=== PATIENT | female | born 1960 | race Caucasian/White ===

== ENCOUNTER → 2021-06-03 07:59 | Outpatient (CLI) | payer BC, SELFPAY ==
--- NOTE | ~2021-06-03 | DEXA_ITS ---
Bone Density Report Name: WIN AMBRIZ Age: 60 Sex: Female Ethnicity: White Date of : 1960 Indication: postmenopausal; screening for osteoporosis; Referring Provider: Hanh, Cristina Davis Study: Bone densitometry was performed. Exam Date: June 03, 2021 Accession number: [id number] Bone Density: Region BMD T-score Z-score Classification AP Spine (L1-L4) 0.967 -0.7 0.8 Normal Femoral Neck (Left) 0.683 -1.5 -0.1 Osteopenia Total Hip (Left) 0.886 -0.5 0.6 Normal Femoral Neck (Right) 0.710 -1.3 0.1 Osteopenia Total Hip (Right) 0.887 -0.5 0.6 Normal Total Hip Mean 0.887 -0.5 0.6 Normal World Health Organization criteria for BMD impression classify patients as: Normal (T-score at or above -1.0), Osteopenia (T-score between -1.0 and -2.5), or Osteoporosis (T-score at or below -2.5). 10-year Fracture Risk(1): Major Osteoporotic Fracture 7.8% Hip Fracture 0.7% Reported Risk Factors: [place] (), Neck BMD=0.683, BMI=34.6 (1) FRAX(R) Version 3.08. Fracture probability calculated for an untreated patient. Fracture probability may be lower if the patient has received treatment. Clinical Information Provided by Patient: Patient maximum height was 64 Menopause Age: 45 Does not regularly consume dairy products Drinks caffeinated beverages Onset of menses at age 14 Number of children 0 Impression: The patient has low bone mass, based on the Left Femoral Neck T-score. The patient has an estimated ten-year risk of hip fracture of 0.7% and an estimated ten-year risk of major fracture of 7.8%, based on the WHO FRAX algorithm. Discussion: BONE DENSITY IS LOW AT ONE OR MORE SKELETAL SITES. This patient's lowest T-score is low at one or more skeletal sites. It meets the World Health Organization's (WHO) criteria for ?low bone mass? (T-score between -1.0 and -2.5). The patient's 10-year risk of fracture as calculated by FRAX is less than the threshold where pharmacological therapy is recommended by the National Osteoporosis Foundation (NOF). However, all treatment decisions require clinical judgment and consideration of individual patient factors, including patient preferences, comorbidities, previous drug use, risk factors not captured in the FRAX model (e.g., frailty, falls, vitamin D deficiency, increased bone turnover, interval significant decline in bone density) and possible under or overestimation of fracture risk by FRAX. The patient should follow a healthful lifestyle (good nutrition with adequate calcium and vitamin D, and appropriate weight-bearing exercise). Follow-Up: Consider repeating this study in 2 to 3 years to reassess this patient's status, or sooner if there is some new clinical indication. Reported by: KELLEE on 06/03/2021 8:12:00 AM.
== END ==
PROVIDERS: PCP Internal Medicine; Visit Provider Nurse Practitioner Obstetrics & Gynecology
DX: Z12.31 Encounter for screening mammogram for malignant neoplasm of breast (principal); M85.852 Other specified disorders of bone density and structure, left thigh; M85.851 Other specified disorders of bone density and structure, right thigh
CPT/HCPCS: 77080

== ENCOUNTER 2022-03-21 14:28 | Outpatient (CLI) | payer BC, SELFPAY | END 2022-03-21 14:29 | disposition home or self-care (01) | LOC: ANHAUDASC 14:30 | PROVIDERS: PCP Internal Medicine; Visit Provider Otolaryngology | DX: H90.41 Sensorineural hearing loss, unilateral, right ear, with unrestricted hearing on the contralateral side (principal); H90.12 Conductive hearing loss, unilateral, left ear, with unrestricted hearing on the contralateral side | CPT/HCPCS: 92557; 92567 ==

== ENCOUNTER 2022-07-23 01:15 | Day surgery (SDC) | payer BC, SELFPAY ==
[2022-07-11 10:15] VITALS: BMI 34.7
--- NOTE | 2022-07-22 19:42 | PM.HPGS ---
History of Present Illness History of Present Illness Consent: Risks, benefits, and alternatives have been discussed and questions answered. Patient agrees to proceed with procedure. Chief complaint: rectal bleeding Narrative: Kathy Jimenez is a 61 year old female who is due for colon cancer screening. Review of Systems Review of Systems: All systems reviewed & are unremarkable except as noted in HPI and below PMFSH Past Medical History Medical History Palmar fascial fibromatosis [dupuytren] Surgical History Surgical History H/O neck surgery 2004 History of knee replacement Family History Family History Father Cancer Mother Cancer Diabetes mellitus Hypertension Heart disease Thyroid disorder Sibling Alcoholism Grandparent Diabetes mellitus Hypertension Grandparent Cancer Social History Social History Smoking status: Never smoker Alcohol intake: never Substance use: never Substance use type: does not use Lack of Transportation: No Lack of Food: Never True Current Housing: I Have Housing Concerned About Future Housing: No Difficulty Paying Gas/Electric Bills: No Difficulty Paying for Meds: No Currently Unemployed: No Education: Master's Degree or Higher Difficulty w/ Childcare or Family Care: No Living arrangements: alone Occupation/Education: retired Gender identity (if verbalized by the patient): Female Spiritual care concerns: No Meds Home Medications and Allergies Home Medications Medication Instructions Recorded Confirmed Type venlafaxine 37.5 mg 37.5 mg PO EVERY OTHER DAY 08/03/20 07/11/22 History capsule,extended release 24 hr fluticasone propionate 50 1 - 2 spray intranasal BID #16 mL 03/13/22 07/11/22 Rx mcg/actuation nasal spray,suspension (Flonase Allergy Relief) aspirin 81 mg capsule 81 mg PO DAILY 07/11/22 07/11/22 History cholecalciferol (vitamin D3) 100 100 mcg PO DAILY 07/11/22 07/11/22 History mcg (4,000 unit) capsule multivitamin with minerals-folic 1 tablet PO DAILY 07/11/22 07/11/22 History acid 0.4 mg tablet Allergies Allergy/AdvReac Type Severity Reaction Status Date / Time Penicillins Allergy Severe swollen Verified 07/23/22 10:26 throat Exam Const: General: alert Orientation/consciousness: patient oriented x3 Resp: Auscultation: clear to auscultation bilaterally Cardio: Rhythm: regular rhythm GI: GI Palp: Yes Soft to palpation and No Tenderness to palpation present (GI) Neuro: General: patient oriented x3 Assessment and Plan Assessment and plan (1) Colon cancer screening: Code(s): Z12.11 - Encounter for screening for malignant neoplasm of colon Status: Acute Assessment and Plan: Colonoscopy with possible biopsy or polypectomy or cautery or injection of substances.
[2022-07-23 10:27] VITALS: BP 146/72; PULSE 81; RESP 20; TEMP 35.9; O2SAT 95
[2022-07-23] MEDS: LACTATED RINGERS 1,000 ML 150 ML IV CONT (10:39)
--- NOTE | 2022-07-23 10:39 | WPDANESEPPF ---
Anes - Initial Pre Proc Eval Procedure: Operation Date: 07/23/22 11:30 Proposed Procedures p Colonoscopy - Sahil Stevenson MD Date/Time: 07/23/22 10:39 Surgeon: Sahil Stevenson MD Pre Op Diagnosis: rectal bleeding Patient Data Age: 61 Gender: F Height: 1.6 m Weight: 87.5 kg Last Vital Signs Temp 96.7 F L 07/23/22 10:27 Pulse 81 07/23/22 10:27 Resp 20 07/23/22 10:27 BP 146/72 H 07/23/22 10:27 Pulse Ox 95 07/23/22 10:27 O2 Del Method Room Air 07/23/22 10:27 Allergies Allergy/AdvReac Type Severity Reaction Status Date / Time Penicillins Allergy Severe swollen Verified 07/23/22 10:26 throat Home Medications Medication Instructions Recorded Confirmed Type venlafaxine 37.5 mg 37.5 mg PO EVERY OTHER DAY 08/03/20 07/11/22 History capsule,extended release 24 hr fluticasone propionate 50 1 - 2 spray intranasal BID #16 mL 03/13/22 07/11/22 Rx mcg/actuation nasal spray,suspension (Flonase Allergy Relief) aspirin 81 mg capsule 81 mg PO DAILY 07/11/22 07/11/22 History cholecalciferol (vitamin D3) 100 100 mcg PO DAILY 07/11/22 07/11/22 History mcg (4,000 unit) capsule multivitamin with minerals-folic 1 tablet PO DAILY 07/11/22 07/11/22 History acid 0.4 mg tablet Patient hx anesthesia problems: none Family hx anesthesia problems: none Results Review: All pre-operative results and documents have been reviewed as part of the pre-operative evaluation. [facility] Past Medical History Medical History Palmar fascial fibromatosis [dupuytren] Surgical History Surgical History H/O neck surgery 2004 History of knee replacement Family History Family History Father Cancer Mother Cancer Diabetes mellitus Hypertension Heart disease Thyroid disorder Sibling Alcoholism Grandparent Diabetes mellitus Hypertension Grandparent Cancer Social History Social History Smoking status: Never smoker Alcohol intake: never Substance use: never Substance use type: does not use Lack of Transportation: No Lack of Food: Never True Current Housing: I Have Housing Concerned About Future Housing: No Difficulty Paying Gas/Electric Bills: No Difficulty Paying for Meds: No Currently Unemployed: No Education: Master's Degree or Higher Difficulty w/ Childcare or Family Care: No Living arrangements: alone Occupation/Education: retired Gender identity (if verbalized by the patient): Female Spiritual care concerns: No Anes - Eval Final PreProcedure Day of Procedure 07/23/22 10:39 Patient weight: obese Heart: regular rate and rhythm Lungs: clear to auscultation Airway: Mallampati scale class II Neurological: alert and oriented Last oral intake: >/= 8 hours ASA classification: II Emergent: no Anesthetic plan: proceed Anesthesia type and monitoring: general GIVS and standard monitoring Results Review: All pre-operative results and documents have been reviewed as part of the pre-operative evaluation. Informed Consent: The patient's anesthetic plan and its attendant risks and benefits were discussed with the patient/family/POA. Questions were solicited and answers provided to the satisfaction of the patient/family/POA.
[2022-07-23 11:25] VITALS: BP 105/68; PULSE 82; RESP 22; O2SAT 98
[2022-07-23 11:35] VITALS: BP 121/74; PULSE 69; RESP 16; O2SAT 95
[2022-07-23 11:45] VITALS: BP 147/74; PULSE 60; RESP 20; O2SAT 97
== END 2022-07-23 12:04 | disposition home or self-care (01) ==
PROVIDERS: PCP Internal Medicine; Visit Provider Internal Medicine Gastroenterology
PROC: 0DJD8ZZ Inspection of Lower Intestinal Tract, Via Natural or Artificial Opening Endoscopic (ICD-10-PCS; CPT 45378; principal; 2022-07-23 11:30)
DX: Z12.11 Encounter for screening for malignant neoplasm of colon (principal); K64.8 Other hemorrhoids; Z79.82 Long term (current) use of aspirin; E66.9 Obesity, unspecified; Z68.34 Body mass index [BMI] 34.0-34.9, adult
CPT/HCPCS: 45378; J2704; J7120

== ENCOUNTER → 2022-11-12 10:13 | Outpatient (CLI) | payer BC, SELFPAY ==
--- NOTE | ~2022-11-12 | MM_ITS ---
EXAMINATION: MM screening danna BI w [facility] HISTORY: Screening mammogram TECHNIQUE: Craniocaudal and mediolateral oblique 3-D tomosynthesis images were obtained and synthetic 2-D images were generated. CAD analysis was submitted and interpreted. COMPARISON: No prior mammogram is available for comparison at this institution. BREAST PARENCHYMAL COMPOSITION: The breasts are heterogeneously dense, which may obscure small masses . FINDINGS: No suspicious mass, calcification, or architectural distortion are identified in either [place] ast to suggest malignancy. IMPRESSION: 1. No mammographic evidence of malignancy. 2. Recommend routine screening mammography in one year. BI-RADS Category 1: Negative Reviewed, dictated and finalized at location A.
== END ==
PROVIDERS: PCP Nurse Practitioner Obstetrics & Gynecology; Visit Provider Nurse Practitioner Obstetrics & Gynecology
DX: Z12.31 Encounter for screening mammogram for malignant neoplasm of breast (principal)
CPT/HCPCS: 77063; 77067

== ENCOUNTER 2023-12-27 11:41 | Outpatient (CLI) | payer BC, SELFPAY ==
--- NOTE | ~2023-12-27 | MM_ITS ---
EXAMINATION: MM screening danna BI w [facility] HISTORY: Screening TECHNIQUE: Craniocaudal and mediolateral oblique 3-D tomosynthesis images were obtained and synthetic 2-D images were generated. CAD analysis was submitted and interpreted. COMPARISON: 11/12/2022 BREAST PARENCHYMAL COMPOSITION: Dense: The breasts are heterogeneously dense, which may obscure small masses FINDINGS: There is no evidence of suspicious mass, calcification, or architectural distortion to sugg est malignancy in either breast. There has been no suspicious interval change. IMPRESSION: 1. No mammographic evidence of malignancy. 2. Recommend routine screening mammography in one year. BI-RADS Category 1: Negative Reviewed, dictated and finalized at location B.
== END 2023-12-27 11:42 | disposition home or self-care (01) ==
LOC: MICIMG 11:42
PROVIDERS: PCP Internal Medicine; Visit Provider Internal Medicine
DX: Z12.31 Encounter for screening mammogram for malignant neoplasm of breast (principal)
CPT/HCPCS: 77063; 77067